=== PATIENT | female | born 1970 | race Caucasian/White ===

== ENCOUNTER 2017-11-14 20:05 | Emergency (ER) | payer BC ==
[2017-11-14 20:48] LABS: Urine Blood TRACE (NEG); Urine Glucose NEGATIVE (NEG); Urine Protein NEGATIVE (NEG)
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
[2017-11-14 22:13] VITALS: TEMP 98.5
[2017-11-14 22:15] VITALS: BP 131/83; O2SAT 100
== END 2017-11-14 22:01 | disposition home or self-care (01) ==
LOC: ER 20:05
DX: S30.1XXA Contusion of abdominal wall, initial encounter (principal); V49.59XA Passenger injured in collision with other motor vehicles in traffic accident, initial encounter
CPT/HCPCS: 70450; 71260; 72125; 74177; 81003; 81025; 99284; Q9967

== ENCOUNTER 2021-12-07 11:35 | Emergency (ER) | payer OTHER ==
--- OUTSIDE RECORDS SUMMARY | 2021-12-07 11:38 | XMS REPORT | Continuity of Care Document ---
:1970 Author Organization [facility] t Address [address] [place] [address] Care Team Providers Name Role Phone JD MARRY Primary Care Physician Unavailable Adele Carrillo Attending Clinician Unavailable Nancy CONTE Attending Clinician Unavailable Joselyn FRANCO Attending Clinician Unavailable Physician, Primary or Family Admitting Clinician Unavailabl e Payers Payer Name Policy Type Policy Number Effective Date Expiration Date [facility] [id number] 2020 CHOICE 00:00:00 BCBS FED SELECT [id number] 2017 00:00:00 Problems This patient has no known problems. Allergies, Adverse Reactions, Alerts Allergy Allergy Status Severity Reaction(s) Onset Inactive Treating Comm ents Source Name Type Date Date Clinician No Known DA Active U [facility] No Known DA Active U 2003- [facility] Contrast 6-15 [facility] 00:[facility]: d 00 [facility] No Known DA Active U 2003-0 [facility] Drug 6[facility]15 [facility] No Known DA Active U 2003-0 [facility] Food 6-15 [facility] Allergie 00:00: d 00 [facility] No Known DA Active U 2003-0 [facility] Other 6-15 [facility] Allergie 00:00: d s 00 [facility] No Known DA Active U 2003-0 [facility] Drug 6-15 [facility] Intolera 00:00: d nces 00 [facility] NO KNOWN Drug Active Univers ALLERGIE Class [facility] Medications This patient has no known medications. Procedures This patient has no known procedures. Encounters Start End Encounter Admission Attending Care Care Encounter Source Date/Time Date/Time Type Type Clinicians Facility Department ID 2021-11-28 2021-11-28 Emergency EM Gerardo, HCAMN HC[facility] [id number] [facility] 12:31:00 15:28:00 Latrice [id number] [facility] 2021-11-28 2021-11-28 Emergency EM Gerardo, [facility]N BRY [id number] [facility] 12:31:00 15:28:00 Latrice 85 [facility] 2020-10-31 2020-10-31 Outpatient Kiara CONTE [facility] [id number] Univers 14:00:00 14:00:00 SENDIL [id number] [facility] 2020-10-31 2020-10-31 [id number] Univers 14:00:00 14:00:00 SENDIL [facility] 2020-09-19 2020-09-19 Outpatient Kiara CONTE [facility] [id number] Univers 13:00:00 13:00:00 SENDIL [id number] [facility] 2020-09-19 2020-09-19 [facility] [id number] Univers 13:00:00 13:00:00 SENDIL [facility] 2019-08-10 2019-08-10 Outpatient Kiara FRANCO [facility] [id number] Univers 14:05:27 23:59:00 ROBERT [facility] Results Test Description Test Time Test Comments Results Result [facility] e Comments - XR ELBOW 3+V RT 2021-11-28 13:10:00 [facility] 1970 Sex: F FAX: Shira Gardiner [employer] [phone] [place]: St: REG Name: KARSON DARDEN [facility] : 1970 Age/S: 51/F [address] [facility] Unit #: [id number] Loc: [place], [place] Phys: Shira Gardiner [employer] [address] Acct: [id number] Dis Date: Status: REG ER PHONE #: [phone] Exam Date: 11/28/2021 1307 FAX #: [phone] Reason: fall EXAMS: CPT CODE: [id number] XR ELBOW 3+V RT [id number] EXAMINATION: - XR HUMERUS 2 + V RT, - XR SHOULDER 2 + V RT, - XR ELBOW 3+V RT, - XR WRIST 3 + V RT HISTORY: Fall and pain COMPARISON: None. LOCATION CODE: C3 FINDINGS: Right shoulder and right humerus: 3 views of the right shoulder and 2 views of the right humerus are submitted for evaluation. There is a nondisplaced fracture of the greater tuberosity of the right humerus. No other fractures are identified. The, clavicular and glenohumeral joints are normal. The adjacent bony and soft tissue structures are unremarkable. Right elbow: 2 views of the right elbow are submitted for evaluation. There is no evidence of fracture, dislocation or destructive osseous lesion. Mild enthesopathy is seen about the medial epicondyles. Articular spaces are maintained. Wrist: 3 views of the right wrist are submitted for evaluation. There is no evidence of fracture, dislocation or destructive osseous lesion. Carpal arcs are maintained and the articular spaces are preserved. The soft tissues are normal. IMPRESSION: Nondisplaced fracture of the greater tuberosity of the right humerus, without other acute abnormality identified in the arm or shoulder at 1310 Reported and signed by: Michelle Nicole M.D CC: Shira Gardiner NP Technologist: WAI FORD Trnscrd Date/Time/By: 11/28/2021 (8832) : By: [email or web address] PAGE 1 Signed Report FAX: Shira Gardiner NP [phone] [place]: St: REG Name: KIRSTINNOEMIKARSON [facility] : 1970 Age/S: 51/F [address] [facility] Unit #: [id number] Loc: [place], [place] Phys: [place] [address] Acct: [id number] Dis Date: Status: REG ER PHONE #: [phone] Exam Date: 11/28/2021 1307 FAX #: [phone] Reason: fall EXAMS: CPT CODE: [id number] XR ELBOW 3+V RT 00863 <Continued> Orig Print D/T: S: 11/28/2021 (2785) PAGE 2 Signed Report - XR SHOULDER 2 + 2021-11-28 V RT 13:10:00 [facility] : 1970 Sex: F FAX: Shira Gardiner NP [phone] [place]: St: REG Name: KARSON DARDEN [facility] : 1970 Age/S: 51/F [address] [facility] Unit #: [id number] Loc: [place], [place] Phys: Shira Gardiner [employer] [address] Acct: [id number] Dis Date: Status: REG ER PHONE #: [phone] Exam Date: 11/28/2021 1307 FAX #: [phone] Reason: fall EXAMS: CPT CODE: [id number] XR SHOULDER 2 + V RT 35584 EXAMINATION: - XR HUMERUS 2 + V RT, - XR SHOULDER 2 + V RT, - XR ELBOW 3+V RT, - XR WRIST 3 + V RT HISTORY: Fall and pain COMPARISON: None. LOCATION CODE: C3 FINDINGS: Right shoulder and right humerus: 3 views of the right shoulder and 2 views of the right humerus are submitted for evaluation. There is a nondisplaced fracture of the greater tuberosity of the right humerus. No other fractures are identified. The, clavicular and glenohumeral joints are normal. The adjacent bony and soft tissue structures are unremarkable. Right elbow: 2 views of the right elbow are submitted for evaluation. There is no evidence of fracture, dislocation or destructive osseous lesion. Mild enthesopathy is seen about the medial epicondyles. Articular spaces are maintained. Wrist: 3 views of the right wrist are submitted for evaluation. There is no evidence of fracture, dislocation or destructive osseous lesion. Carpal arcs are maintained and the articular spaces are preserved. The soft tissues are normal. IMPRESSION: Nondisplaced fracture of the greater tuberosity of the right humerus, without other acute abnormality identified in the arm or shoulder at 1310 Reported and signed by: Michelle Nicole M.D CC: Shira Gardiner NP Technologist: WAI FORD Trnlard Date/Time/By: 11/28/2021 (4774) : By: [email or web address] PAGE 1 Signed Report FAX: Shira Gardiner NP [phone] [place]: St: REG Name: KARSON DARDEN [facility] : 1970 Age/S: 51/F [address] [facility] Unit #: [id number] Loc: [place], [place] Phys: Shira Gardiner [employer] [address] Acct: [id number] Dis Date: Status: REG ER PHONE #: [phone] Exam Date: 11/28/2021 1307 FAX #: [phone] Reason: fall EXAMS: CPT CODE: [id number] XR SHOULDER 2 + V RT 19881 <Continued> Orig Print D/T: S: 11/28/2021 (9736) PAGE 2 Signed Report - XR HUMERUS 2 + V 2021-11-28 RT 13:10:00 [facility] : 1970 Sex: F FAX: Shira Gardiner Hong [employer] [phone] [place]: St: REG Name: KARSON DARDEN [facility] : 1970 Age/S: 51/F [address] [facility] [employer] Unit #: [id number] Loc: [place], [place] Phys: Shira Gardiner [employer] [address] Acct: [id number] Dis Date: Status: REG ER PHONE #: [phone] Exam Date: 11/28/2021 1307 FAX #: [phone] Reason: fall EXAMS: CPT CODE: [id number] XR HUMERUS 2 + V RT [id number] EXAMINATION: - XR HUMERUS 2 + V RT, - XR SHOULDER 2 + V RT, - XR ELBOW 3+V RT, - XR WRIST 3 + V RT HISTORY: Fall and pain COMPARISON: None. LOCATION CODE: C3 FINDINGS: Right shoulder and right humerus: 3 views of the right shoulder and 2 views of the right humerus are submitted for evaluation. There is a nondisplaced fracture of the greater tuberosity of the right humerus. No other fractures are identified. The, clavicular and glenohumeral joints are normal. The adjacent bony and soft tissue structures are unremarkable. Right elbow: 2 views of the right elbow are submitted for evaluation. There is no evidence of fracture, dislocation or destructive osseous lesion. Mild enthesopathy is seen about the medial epicondyles. Articular spaces are maintained. Wrist: 3 views of the right wrist are submitted for evaluation. There is no evidence of fracture, dislocation or destructive osseous lesion. Carpal arcs are maintained and the articular spaces are preserved. The soft tissues are normal. IMPRESSION: Nondisplaced fracture of the greater tuberosity of the right humerus, without other acute abnormality identified in the arm or shoulder at 1310 Reported and signed by: Michelle Nicole M.D CC: Shira Gardiner NP Technologist: WAI Ramirezrd Date/Time/By: 11/28/2021 (8466) : By: [email or web address] PAGE 1 Signed Report FAX: Shira Gardiner [employer] [phone] [place]: St: REG Name: KARSON DARDEN [facility] : 1970 Age/S: 51/F [address] [facility] Unit #: [id number] Loc: [place], [place] Phys: Shira Gardiner [employer] [address] Acct: [id number] Dis Date: Status: REG ER PHONE #: [phone] Exam Date: 11/28/2021 1307 FAX #: [phone] Reason: fall EXAMS: CPT CODE: [id number] XR HUMERUS 2 + V RT 35152 <Continued> Orig Print D/T: S: 11/28/2021 (6839) PAGE 2 Signed Report - XR WRIST 3 + V 2021-11-28 RT 13:10:00 [facility] : 1970 Sex: F FAX: Shira Gardiner [employer] [phone] [place]: St: REG Name: KARSON DARDEN [facility] : 1970 Age/S: 51/F [address] [facility] Unit #: [id number] Loc: [place], [place] Phys: Shira Gardiner [employer] [address] Acct: [id number] Dis Date: Status: REG ER PHONE #: [phone] Exam Date: 11/28/2021 1307 FAX #: [phone] Reason: fall EXAMS: CPT CODE: [id number] XR WRIST 3 + V RT 00001 EXAMINATION: - XR HUMERUS 2 + V RT, - XR SHOULDER 2 + V RT, - XR ELBOW 3+V RT, - XR WRIST 3 + V RT HISTORY: Fall and pain COMPARISON: None. LOCATION CODE: C3 FINDINGS: Right shoulder and right humerus: 3 views of the right shoulder and 2 views of the right humerus are submitted for evaluation. There is a nondisplaced fracture of the greater tuberosity of the right humerus. No other fractures are identified. The, clavicular and glenohumeral joints are normal. The adjacent bony and soft tissue structures are unremarkable. Right elbow: 2 views of the right elbow are submitted for evaluation. There is no evidence of fracture, dislocation or destructive osseous lesion. Mild enthesopathy is seen about the medial epicondyles. Articular spaces are maintained. Wrist: 3 views of the right wrist are submitted for evaluation. There is no evidence of fracture, dislocation or destructive osseous lesion. Carpal arcs are maintained and the articular spaces are preserved. The soft tissues are normal. IMPRESSION: Nondisplaced fracture of the greater tuberosity of the right humerus, without other acute abnormality identified in the arm or shoulder at 1310 Reported and signed by: Michelle Nicole M.D CC: Shira Gardiner NP Technologist: WAI Lilly Date/Time/By: 11/28/2021 (4425) : By: [email or web address] PAGE 1 Signed Report FAX: Shira Gardiner NP [phone] [place]: St: REG Name: KARSON DARDEN [facility] : 1970 Age/S: 51/F [address] [facility] Unit #: [id number] Loc: [place], [place]: [place] [address] Acct: [id number] Dis Date: Status: REG ER PHONE #: [phone] Exam Date: 11/28/2021 1307 FAX #: [phone] Reason: fall EXAMS: CPT CODE: [id number] XR WRIST 3 + V RT 50407 <Continued> Orig Print D/T: S: 11/28/2021 (5004) PAGE 2 Signed Report
[2021-12-07] MEDS ORDERED: MORPHINE 4 MG/ML SYR ONE (12:15)
--- NOTE | 2021-12-07 13:08 | RAD REPORT ---
EXAM DESCRIPTION: RAD - Shoulder Right 2 View - 12/07/2021 12:56 pm CLINICAL HISTORY: Right shoulder pain FINDINGS: Lucencies within the lateral right humeral head having the appearance of minimally displac ed subacute fracture. Osteoporosis. No dislocation is seen
[2021-12-07] MEDS ORDERED: HYDROMORPHONE HCL 0.5 MG/0.5 ML INJ ONE (14:14)
--- NOTE | 2021-12-07 14:20 | ER ---
Nurse's Notes [facility] Name: Yani Carter Age: 51 yrs Sex: Female : 1970 Arrival Date: 12/07/2021 Time: 11:50 Bed DIS3 Private MD: Diagnosis: Humeral Head Fracture Presentation: 12/07 12:06 Chief complaint: Patient states: right shoulder fracture 2 weeks ago, still having pain iw and unable to work. Coronavirus screen: At this time, the client does not indicate any symptoms associated with coronavirus-19. Ebola Screen: Patient negative for fever greater than or equal to 101.5 degrees Fahrenheit, and additional compatible Ebola Virus Disease symptoms Patient denies exposure to infectious person. Patient denies travel to an Ebola-affected area in the 21 days before illness onset. No symptoms or risks identified at this time. Initial Sepsis Screen: Does the patient meet any 2 criteria? No. Patient's initial sepsis screen is negative. Does the patient have a suspected source of infection? No. Patient's initial sepsis screen is negative. Risk Assessment: Do you want to hurt yourself or someone else? Patient reports no desire to harm self or others. 12:06 Method Of Arrival: Ambulatory iw 12:06 Acuity: SONALI 4 iw Historical: - Allergies: 12:07 No Known Allergies; iw - PMHx: 12:07 FACTOR 5; Hypothyroidism; Migraines; iw - Social history:: Smoking status: unknown. Screenin:41 Abuse screen: Denies threats or abuse. Denies injuries from another. Nutritional ss screening: No deficits noted. Tuberculosis screening: Never had TB. Fall Risk None identified. Assessment: 13:41 Reassessment: Pt states, "That morphine didn't help at all. My pain is still a 10/10. ss Dilaudid usually helps more.". Pain: Complains of pain in R shoulder. Neuro: Contreras Agitation-Sedation Scale (RASS): 0 - Alert and Calm Level of Consciousness is awake, alert, obeys commands, Oriented to person, place, time, situation. Respiratory: Airway is patent Respiratory effort is even, unlabored. 14:13 Reassessment: Patient appears in no apparent distress at this time. Neuro: Contreras ss Agitation-Sedation Scale (RASS): 0 - Alert and Calm. Vital Signs: 12:06 BP 125 / 100; Pulse 105; Resp 16; Temp 98.2; Pulse Ox 100% on R/A; iw ED Course: 11:50 Patient arrived in ED. mr 11:54 Suresh Lo PA is PHCP. jmm 11:54 Obed Stallings DO is Attending Physician. m 12:07 Triage completed. iw 12:07 Arm band placed on. iw 12:55 Shoulder Right (2 View) XRAY In Process Unspecified. EDMS 13:36 Stefany Green, CATHERINE is Primary Nurse. ss 13:41 Patient has correct armband on for positive identification. Bed in low position. Call ss light in reach. 13:41 No provider procedures requiring assistance completed. Patient did not have IV access ss during this emergency room visit. Shoulder immobilizer applied on right shoulder. 14:19 Jose Burgos MD is Referral Physician. [facility] Administered Medications: 12:12 Drug: morphine 4 mg Route: IM; Site: left deltoid; iw 13:43 Follow up: Response: No adverse reaction; Pain is unchanged, physician notified ss 14:13 Drug: Dilaudid (HYDROmorphone) 0.5 mg Route: IM; Site: left deltoid; ss 14:40 Follow up: Response: No adverse reaction; Pain is decreased; RASS: Alert and Calm (0) ss Medication: 13:41 VIS not applicable for this client. ss Outcome: 14:19 Discharge ordered by . m 14:36 Discharged to home ambulatory. ss 14:36 Condition: good 14:36 Discharge instructions given to patient, Instructed on discharge instructions, follow up and referral plans. medication usage, Demonstrated understanding of instructions, follow-up care, medications, Prescriptions given X 1. 14:40 Patient left the ED. ss Signatures: Dispatcher [employer] EDMS Suresh Lo PA PA jmLili Murcia Angelina Gonzales RN RN Stefany Green RN RN ss
--- NOTE | 2021-12-07 14:20 | EDPHYS ---
Physician Documentation [facility] Name: Yani aCrter Age: 51 yrs Sex: Female : 1970 Arrival Date: 12/07/2021 Time: 11:50 Bed DIS3 Private MD: ED Physician Obed Stallings HPI: 12/07 11:57 This 51 yrs old Female presents to ER via Ambulatory with complaints of Arm Injury, jmm Shoulder Injury. 11:57 The patient or guardian complains of injury, pain. Onset: The symptoms/episode jmm began/occurred acutely, 2 week(s) ago. This is a 51-year-old female with history of factor V Leiden, hypothyroidism presents emerged part with complaints of right shoulder pain which has been ongoing since fracture to the humerus 2 weeks ago. Patient states the pain continues. Patient is not been wearing her sling. Patient has not followed up with her orthopedic doctor. Historical: - Allergies: 12:07 No Known Allergies; iw - PMHx: 12:07 FACTOR 5; Hypothyroidism; Migraines; iw - Social history:: Smoking status: unknown. ROS: 11:57 Constitutional: Negative for fever, chills, and weight loss, Cardiovascular: Negative jmm for chest pain, palpitations, and edema, Respiratory: Negative for shortness of breath, cough, wheezing, and pleuritic chest pain. 11:57 MS/extremity: Positive for pain. 11:57 All other systems are negative. Exam: 11:57 Constitutional: This is a well developed, well nourished patient who is awake, alert, jmm and in no acute distress. Head/Face: atraumatic. Eyes: EOMI, no conjunctival erythema appreciated ENT: Moist Mucus Membranes Neck: Trachea midline, Supple Chest/axilla: Normal chest wall appearance and motion. Cardiovascular: Regular rate and rhythm. 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 11:57 Skin: Appearance: Color: normal in color. 11:57 Neuro: Orientation: is normal, Mentation: is normal, Memory: is normal. 11:57 Psych: Behavior/mood is pleasant, cooperative. Vital Signs: 12:06 BP 125 / 100; Pulse 105; Resp 16; Temp 98.2; Pulse Ox 100% on R/A; iw MDM: 11:57 Patient medically screened. [facility] 14:18 Data reviewed: vital signs, nurses notes. Counseling: I had a detailed discussion with [facility] the patient and/or guardian regarding: the historical points, exam findings, and any diagnostic results supporting the discharge/admit diagnosis, radiology results, the need for outpatient follow up, to return to the emergency department if symptoms worsen or persist or if there are any questions or concerns that arise at home. 12/07 11:58 Order name: Shoulder Right (2 View) XRAY; Complete Time: 13:11 [facility] 12/07 13:23 Order name: Shoulder Immobilizer; Complete Time: 13:43 [facility] Administered Medications: 12:12 Drug: morphine 4 mg Route: IM; Site: left deltoid; iw 13:43 Follow up: Response: No adverse reaction; Pain is unchanged, physician notified ss 14:13 Drug: Dilaudid (HYDROmorphone) 0.5 mg Route: IM; Site: left deltoid; ss 14:40 Follow up: Response: No adverse reaction; Pain is decreased; RASS: Alert and Calm (0) ss Disposition: 22:11 Co-signature as Attending Physician, Obed Stallings DO I was immediately available on-site ms3 in the Emergency Department for consultation in the care of the patient.. Disposition Summary: 12/07/21 14:19 Discharge Ordered Location: Home [facility] Condition: Stable [facility] Diagnosis - Humeral Head Fracture [facility] Followup: [facility] - With: Jose Burgos MD - When: 2 - 3 days - Reason: Recheck today's complaints, Continuance of care, Re-evaluation by your physician Discharge Instructions: - Discharge Summary Sheet [facility] - Humerus Fracture Treated With Immobilization [facility] - Humerus Fracture Rehab-SportsMed [facility] Forms: - Medication Reconciliation Form [facility] - Work release form [facility] - Thank You Letter [facility] - Antibiotic Education [facility] - Prescription Opioid Use [facility] Prescriptions: - orphenadrine citrate 100 mg Oral Tablet Sustained Release - take 1 tablet by ORAL route 2 times per day As needed; 20 tablet; Refills: 0, jmm Product Selection Permitted Signatures: Dispatcher [employer] Suresh Cervantes PA PA jmm Williams, Irene, CATHERINE RN Stefany Huffman RN RN ss Obed Stallings DO DO ms3 Corrections: (The following items were deleted from the chart) 13:21 13:16 Sling ordered. tavo vo
[2021-12-07 15:15] VITALS: BP 125/100; TEMP 98.2; O2SAT 100
== END 2021-12-07 14:40 | disposition home or self-care (01) ==
LOC: ER 11:35
DX: S42.301S Unspecified fracture of shaft of humerus, right arm, sequela (principal)
CPT/HCPCS: 73030; 96372; 99284; J1170

== ENCOUNTER 2023-05-24 10:30 | Emergency (ER) | payer OTHER, SELFPAY ==
--- OUTSIDE RECORDS SUMMARY | 2023-05-24 10:34 | XMS REPORT | Continuity of Care Document ---
:1970 Author Organization [facility] t Address [address] [place] [address]. [address] [place] [address] Care Team Providers Name Role Phone KATELYN MILES Primary Care Physician Unavailable KATELYN MILES Attending Clinician Unavailable MEL HERNANDEZ Attending Clinician Unavailable DIANE JAKCSON Attending Clinician Unavailable GINNA MOTLEY Attending Clinician Unavailable DURAL JARED Attending Clinician Unavailable ELIJAH CERDA Attending Clinician Unavailable LO ESCOBAR Attending Clinician Unavailable SYSTEM, PROVIDER NOT IN Attending Clinician Unavailable MD SARAH Attending Clinician Unavailable HANY BATSE Attending Clinician Unavailable Latrice Carrillo Attending Clinician Unavailable SUSANNA CONTE Attending Clinician Unavailable ROBERT FRANCO Attending Clinician Unavailable Physician, No Primary or Family Admitting Clinician Unavaila ble Payers Payer Name Policy Type Policy Number Effective Date Expiration Date S emamnuel AETNA [facility] 9 [id number] 2023 SILVER $30 4000 00:00:[address] [id number] 2020 CHOICE 00:00:00 [facility] FED [employer] [id number] 2017 00:00:00 Problems This patient has no known problems. Allergies, Adverse Reactions, Alerts Allergy Allergy Status Severity Reaction(s) Onset Inactive Treating Comm ents Source Name Type Date Date Clinician Morphine Propensi Active Other Doesn't Kel y ty to 03-11 work Seybold adverse 00:00: - reaction 00 Externa s l Acetamin Propensi Active Rash Yolanda ophen-Co ty to 03-11 Seybold deine adverse 00:00: - reaction 00 Externa s l No Known DA Active U [facility]03 [facility] s 00:00: d 00 [facility] No Known DA Active U 2004-0 [facility] Other 6-15 [facility] Allergie 00:00: d s 00 [facility] No Known DA Active U 2004-0 [facility] Drug 6-15 [facility] Intolera 00:00: d nces 00 [facility] No Known DA Active U 2004-0 [facility] Contrast 6-15 [facility] Allergie 00:00: d s 00 [facility] No Known DA Active U 2004-0 [facility] Drug 6-15 [facility] Allergie 00:00: d s 00 [facility] No Known DA Active U 2004-0 [facility] Food 6-15 [place] Allergie 00:00: d s 00 [facility] [id number] Drug Active rash Common allergy [facility] NO KNOWN Drug Active Univers ALLERGIE Class ity of S [facility] Social History Social Habit Start Date Stop Date Quantity Comments Source Gender identity Yolanda crespo - External Sexual orientation Yolanda Perez - External History of tobacco Cigarette Smoker Yolanda Preez use - External Alcohol intake 2023-03-11 2023-03-11 Current drinker Bozena Perez 00:00:00 00:00:00 of alcohol - External (finding) Cigarette 2023-03-08 2023-03-08 Yolanda Perez pack-years 00:00:00 00:00:00 - External Tobacco use and 2023-03-08 2023-03-08 Smokeless tobacco Ke aaron Perez exposure 00:00:00 00:00:00 non-user - External History of Social 2023-03-08 2023-03-08 Yolanda Perez function 00:00:00 00:00:00 - External Alcohol Comment 2023-03-08 2023-03-08 socially Yolanda crespo 00:00:00 00:00:00 - External Cigarettes smoked 2023-03-08 2023-03-08 Yolanda Perez current (pack per 00:00:00 00:00:00 - Exter nal day) - Reported Sex Ass[birth year] At [birth year] Yolanda crespo 00:00:00 00:00:00 - External Smoking Status Start Date Stop Date Source Ex-smoker 2023-03-08 00:00:00 2023-03-08 00:00:00 Yolanda barker - External Medications Ordered Filled Start Stop Current Ordering Indication Dosage Frequency Signature Comments Components Source Medication Medication Date Date Medication? Clinician (SIG) Name Name Alprazolam Yes .5mg [id number] Take 1 Yolanda 0.5 MG oral 8-14 [id number] tablet Seybold Tablet 13:47: 3D (0.5 mg - 02 total) by Externa mouth 3 l times daily as needed Furosemide Yes 20mg Take 1 Kelse y (Lasix) 20 8-14 tablet (20 Sey bold MG oral 13:47: mg total) - Tablet 02 by mouth Externa daily l Bupropion Yes 150mg Take 1 Kelse y HCL XL 150 8-14 tablet Seybold MG OR TB24 13:47: (150 mg - 02 total) by Externa mouth l daily Clonidine Yes Yolanda (CATAPRES) 5-30 Seybold 0.2 MG oral 00:00: - Tablet 00 Externa l Tramadol Yes TAKE ONE Kelse y HCl 5-15 (1) OR TWO Seybold (ULTRAM) 50 00:00: (2) - MG oral 00 TABLET(S) Externa Tablet BY MOUTH l THREE TIMES A DAY. Carisoprodo 2022-0 Yes Yolanda l 350 MG 5-11 Seybold oral Tablet 00:00: - 00 Externa l Clonazepam 2022-0 Yes Yolanda 2 MG oral 5-11 Seybold Tablet 00:00: - 00 Externa l Gabapentin 2022-0 Yes Yolanda 300 MG oral 5-11 Seybold Capsule 00:00: - 00 Externa l Omeprazole 2022-0 Yes Yolanda 40 MG oral 5-11 Seybold Delayed 00:00: - Release 00 Externa Capsule l Bupropion 2022-0 2022- No Yolanda HCL XL 300 12-06-14 Seybold MG OR TB24 00:00: 00:00 - 00 :00 Externa l Levothyroxi 2022-0 Yes Yolanda ne Sodium 11-26 Seybold 300 MCG 00:00: - oral Tablet 00 Externa l Quetiapine 0 2022- No Yolanda Fumarate 5-08 05- Seybold 300 MG oral 00:00: 00:00 - Tablet 00 :00 Externa l Xarelto 20 2022-0 Yes 20mg Take 1 Kelse y MG oral 4-24 tablet (20 Seybol d Tablet 00:00: mg total) - 00 by mouth Externa daily WITH l FOOD atorvastati atorvastati No atorvastat n 20mg n 20mg 7-15 in 20mg 00:00: 00 clonazePAM clonazePAM 2020-0 No 1{table QD clonazePAM 2 MG 2 MG 7-15 t} 2 MG 00:00: 00 Topamax 50 Topamax 50 2020-0 No 1{table QD Topamax 50 MG MG 7-15 t} MG 00:00: 00 Xarelto Xarelto No Xarelto traMADol traMADol No traMADol HCl 50 MG HCl 50 MG HCl 50 MG Levothyroxi Levothyroxi No Levothyrox ne Sodium ne Sodium ine Sodium Xarelto 20 Xarelto 20 No Xarelto 20 MG MG MG Vital Signs Vital Name Observation Time Observation Value Comments Source Systolic blood 2023-03-11 18:40:00 138 mm[Hg] Yolanda Seybold - pressure External Diastolic blood 2023-03-11 18:40:00 88 mm[Hg] Kelse y Seybold - pressure External Heart rate 2023-03-11 18:40:00 99 /min Yolanda S eybold - External Body temperature 2023-03-11 18:40:00 36.61 Erica Zaira ey Seybold - External Respiratory rate 2023-03-11 18:40:00 20 /min Zaira kearney Seybold - External Body height 2023-03-11 18:40:00 165.1 cm Yolanda Angulo eybold - External Body weight 2023-03-11 18:40:00 109.317 kg Yolanda Angulo eybold - External BMI 2023-03-11 18:40:00 40.10 kg/m2 Yolanda Angulo eybomadhu - External Oxygen saturation in 2023-03-11 18:40:00 100 /min oYlanda Perez - Arterial blood by External Pulse oximetry height 2022-02-07 10:00:00 65 [in_i] [facility] weight 2022-02-07 10:00:00 215 [lb_av] [facility] bmi 2022-02-07 10:00:00 35.77 kg/m2 [facility] blood pressure 2022-02-07 10:00:00 124 mm[Hg] Common [facility] - systolic [facility] blood pressure 2022-02-07 10:00:00 72 mm[Hg] Common [facility] - diastolic [facility] Procedures This patient has no known procedures. Encounters Start End Encounter Admission Attending Care Care Encounter Source Date/Time Date/Time Type Type Clinicians Facility Department ID 2022-02-07 Outpatient JDKATELYN [facility] [id number] Common 11:24:[id number] [facility] 2023-07-04 2023-07-04 Outpatient YOLANDA HERNANDEZ [id number] Yolanda 16:30:00 16:30:00 MEL Seybol d 2023-06-17 2023-06-17 Outpatient YOLANDA JACKSON [id number] Yolanda 13:30:00 13:30:00 DIANEWALDO Gregory ld 2023-06-04 2023-06-04 Outpatient YOLANDA MOTLEY [id number] Yolanda 13:00:00 13:00:00 GINNA Seybol d 2023-05-23 2023-05-23 Outpatient JARED ROBERTS [id number] Yolanda 12:45:00 12:45:00 Seybol d 2023-05-13 2023-05-13 Outpatient YOLANDA CERDA [id number] Yolanda 00:00:00 00:00:00 ELIJAH Seybol d 2023-04-22 2023-04-22 Outpatient YOLANDA CERDA [id number] Yolanda 00:00:00 00:00:00 ELIJAH Seybol mirlande 2023-04-05 2023-04-05 Outpatient YOLANDA ESCOBAR [id number] Yolanda 15:00:00 15:00:00 LO Goldsmithybol mirlande 2023-04-05 2023-04-05 Outpatient YOLANDA CONNORS [id number] Yolanda 00:00:00 00:00:00 PROVIDER Bri leung 2023-03-27 2023-03-27 Outpatient LIZZETTE MOYER [id number] Yolanda 00:00:00 00:00:00 MD Carole HUFF 2023-03-27 2023-03-27 Outpatient LIZZETTE MOYER [id number] Yolanda 00:00:00 00:00:00 MD Carole HUFF 2023-03-11 2023-03-11 Outpatient YOLANDA CERDA [id number] Yolanda 13:30:00 13:30:00 ELIJAH Seybol mirlande 2023-02-18 2023-02-18 Outpatient YOLANDA CERDA [id number] Yolanda 08:45:00 08:45:00 ELIJAH Goldsmithybol mirlande 2023-01-03 2023-01-03 Outpatient YOLANDA BATES [id number] Yolanda 14:00:00 14:00:00 HANY Goldsmithybol mirlande 2022-02-07 2022-02-07 OFFICE STLMLC STLMLC [id number] mmon 00:00:00 00:00:00 VISIT [facility] ESTAB PT - CHI LEVEL 4 [facility] 2021-11-28 2021-11-28 Emergency EM Gerardo, HCAMN HCAMN [id number] [facility] 12:31:00 15:28:00 Latrice [id number] [facility] 2021-11-28 2021-11-28 Emergency EM Gerardo, HCAMN BRY [id number] [facility] 12:31:00 15:28:00 Latrice Kauffman [facility] li [facility] 2020-10-31 2020-10-31 Outpatient Kiara DG [facility] [id number] Univers 14:00:00 14:00:00 SENDIL [facility] 2020-09-19 2020-09-19 Outpatient Kiara DG [facility] [id number] Univers 13:00:00 13:00:00 SENDIL [facility] 2019-08-10 2019-08-10 Outpatient Kiara FRANCO, [facility] [id number] Univers 14:05:27 23:59:00 [facility] Results Test Description Test Time Test Comments Results Result [facility] e Comments - XR ELBOW 3+V RT 2021-11-28 13:10:00 [facility] 1970 Sex: F FAX: Shira Gardiner [employer]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 [phone] [place]: St: REG Name: KARSON DARDEN [facility] : 1970 Age/S: 51/F [address] Unit #: [id number] Loc: [place], [place] Phys: [place] [id number] Acct: [id number] Dis Date: Status: REG ER PHONE #: [phone] Exam Date: 11/28/2021 1307 FAX #: [phone] Reason: fall EXAMS: CPT CODE: [id number] XR ELBOW 3+V RT [id number] EXAMINATION: - XR HUMERUS 2 + V [...] NP Technologist: WAI FORD Trnscrd Date/Time/By: 11/28/2021 (1310) : By: [email or web address] PAGE 1 Signed Report FAX: Shira Gardiner NP [phone] [place]: St: REG Name: KARSNO DARDEN [facility] : 1970 Age/S: 51/F [address] Unit #: [id number] Loc: [place], [place] Phys: Shira Gardiner [employer]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 [address] Acct: [id number] Dis Date: Status: REG ER PHONE #: [phone] Exam Date: 11/28/2021 1307 FAX #: [phone] Reason: fall EXAMS: CPT CODE: [id number] XR ELBOW 3+V RT [id number] (Continued) Orig Print D/T: S: 11/28/2021 (1314) PAGE 2 Signed Report - XR SHOULDER 2 + 2021-11-28 V RT 13:10:00 [facility] : 1970 Sex: F FAX: Shira Gardiner NP [phone] [place]: St: REG Name: KARSON DARDEN [facility] : 1970 Age/S: 51/F [address] Unit #: [id number] [place] Phys: Shira Gardiner [employer]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 [address] Acct: [id number] Dis Date: Status: REG ER PHONE #: [phone] Exam Date: 11/28/2021 1307 FAX #: [phone] Reason: fall EXAMS: CPT CODE: [id number] XR SHOULDER 2 + V RT [id number] EXAMINATION: - XR HUMERUS 2 + V [...] CC: Shira Gardiner NP Technologist: WAI FORD Trnmard Date/Time/By: 11/28/2021 (1310) : By: [email or web address] PAGE 1 Signed Report FAX: Shira Gardiner NP [phone] [place]: St: REG Name: KARSON DARDEN [facility] : 1970 Age/S: 51/F [address] Unit #: [id number] Loc: [place], [place] Phys: Shira Gardiner [employer]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 [address] Acct: [id number] Dis Date: Status: REG ER PHONE #: [phone] Exam Date: 11/28/2021 1307 FAX #: [phone] Reason: fall EXAMS: CPT CODE: [id number] XR SHOULDER 2 + V RT [id number] (Continued) Orig Print D/T: S: 11/28/2021 (1314) PAGE 2 Signed Report - XR HUMERUS 2 + V 2021-11-28 RT 13:10:00 [facility] : 1970 Sex: F FAX: Shira Gardiner [employer]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 [phone] [place]: St: REG Name: KARSON DARDEN [facility] : 1970 Age/S: 51/F [address] Unit #: [id number] Loc: [place], [place] Phys: Shira Gardiner [employer]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 [address] Acct: [id number] Dis Date: Status: REG ER PHONE #: [phone] Exam Date: 11/28/2021 [facility] FAX #: [phone] Reason: fall EXAMS: CPT CODE: [id number] XR HUMERUS 2 + V RT [id number] EXAMINATION: - XR HUMERUS 2 + V [...] NP Technologist: WAI FORD Trnscrd Date/Time/By: 11/28/2021 (1310) : By: [email or web address] PAGE 1 Signed Report FAX: Shira Gardiner NP [phone] [place]: St: REG Name: KARSON DARDEN [facility] : 1970 Age/S: 51/F [address] [facility] Unit #: [id number] [place]: [place]: [place] [id number] Acct: [id number] Dis Date: Status: REG ER PHONE #: [phone] Exam Date: 11/28/2021 1307 FAX #: [phone] Reason: fall EXAMS: CPT CODE: [id number] XR HUMERUS 2 + V RT [id number] (Continued) Orig Print D/T: S: 11/28/2021 (1314) PAGE 2 Signed Report - XR WRIST 3 + V 2021-11-28 RT 13:10:00 [facility] : 1970 Sex: F FAX: Shira Gardiner [employer]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 [phone] [place]: St: REG Name: TOMIKARSON CORTEZ YESSICA [facility] : 1970 Age/S: 51/F [address] [facility] Unit #: [id number] Loc: [place], [place] Phys: Shira Gardiner [employer]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 [address] Acct: [id number] Dis Date: Status: REG ER PHONE #: [phone] Exam Date: 11/28/2021 1307 FAX #: [phone] Reason: fall EXAMS: CPT CODE: [id number] XR WRIST 3 + V RT [id number] EXAMINATION: - XR HUMERUS 2 + V [...] Gardiner NP Technologist: WAI Lilly Date/Time/By: 11/28/2021 (1310) : By: [email or web address] PAGE 1 Signed Report FAX: Shira Gardiner NP [phone] [place]: St: REG Name: KARSON DARDEN [facility] : 1970 Age/S: 51/F [address] [facility] Unit #: [id number] Loc: [place], [place]: [place] [address] Acct: [id number] Dis Date: Status: REG ER PHONE #: [phone] Exam Date: 11/28/2021 1307 FAX #: [phone] Reason: fall EXAMS: CPT CODE: [id number] XR WRIST 3 + V RT [id number] (Continued) Orig Print D/T: S: 11/28/2021 (1948) PAGE 2 Signed Report
[2023-05-24 11:25] LABS: Absolute Lymphocytes (CBC) 3.2 K/uL (0.7-4.9); Hematocrit 39.8 % (36.0-45.0); Lymphocytes % 32.6 % (15.3-44.8); MCV 92.3 fL (80-100); MPV 7.9 fL (7.6-11.3); Platelets 260 thou/uL (152-406); RBC Red Blood Cell Count 4.31 M/uL (3.86-4.86)
[2023-05-24 11:28] LABS: Protime INR 1.08
[2023-05-24] MEDS ORDERED: PANTOPRAZOLE 40 MG INJ ONE (11:35)
[2023-05-24] MEDS ORDERED: NA CHLORIDE 0.9% 1,000 ML ONE (11:35)
[2023-05-24 11:49] LABS: ALT/SGPT 56 U/L (13-56); AST/SGOT 32 U/L (15-37); Albumin 3.3 g/dL (3.4-5.0); Alkaline Phosphatase 115 U/L (45-117); BUN Blood Urea Nitrogen 13 mg/dL (7-18); Bicarbonate 28 mEq/L (21-32); Bilirubin Total 0.3 mg/dL (0.2-1.0); Glomerular Filtration Rate 88 ml/min (=/>90); Glucose Level 114 mg/dL (74-106); Lipase 60 U/L (13-75); NT PRO-BNP 118 pg/mL (<125); Potassium 3.3 mEq/L (3.5-5.1); Protein, Total 7.4 g/dL (6.4-8.2); Sodium Level 137 mEq/L (136-145)
[2023-05-24 11:50] LABS: Bilirubin Direct < 0.1 mg/dL (0-0.2); Bilirubin Indirect, Calculated ND mg/dL (0.2-0.8)
--- NOTE | 2023-05-24 12:08 | RAD REPORT ---
EXAM DESCRIPTION: RAD - Chest Single View - 05/24/2023 11:45 am CLINICAL HISTORY: COUGH Chest pain. COMPARISON: CHEST PA AND LAT 2 VIEW dated 05/31/2013 FINDINGS: Portable technique limits examination quality. The lungs are grossly clear. The heart is normal in size. No displaced fractures. IMPRESSION: No acute intrathoracic process suspected.
[2023-05-24] MEDS ORDERED: HYDROMORPHONE HCL 1 MG/ML INJ ONE (12:11)
--- NOTE | 2023-05-24 12:21 | RAD REPORT ---
EXAM DESCRIPTION: CT - Head Brain Wo Cont - 05/24/2023 12:07 pm CLINICAL HISTORY: HEADACHE Headache, drowsiness COMPARISON: Head Brain Wo Cont dated 07/26/2017; Abdomen Pelvis W Contrast dated 05/24/2023 TECHNIQUE: All CT scans are performed using dose optimization technique as appropriate and may inclu de automated exposure control or mA/KV adjustment according to patient size. FINDINGS: No intracranial hemorrhage, hydrocephalus or extra-axial fluid collection.No areas of brai n edema or evidence of midline shift. Mild nonspecific hyperdensity of the superior sagittal sinus. The paranasal sinuses and mastoids are clear. The calvarium is intact. IMPRESSION: No acute intracranial abnormality. Superior sagittal sinus has a mildly hyperdense appearance. This is nonspecific but can be seen in th rombus as described in the patient's clinical history.
--- NOTE | 2023-05-24 12:25 | RAD REPORT ---
EXAM DESCRIPTION: CTAbdomen Pelvis W Contrast - 05/24/2023 12:11 pm CLINICAL HISTORY: Abdominal pain. ABD PAIN COMPARISON: Chest Single View dated 05/24/2023 TECHNIQUE: Biphasic CT imaging of the abdomen and pelvis was performed with 100 ml non-ionic IV cont rast. All CT scans are performed using dose optimization technique as appropriate and may include automated exposure control or mA/KV adjustment according to patient size. FINDINGS: The lung bases are clear.Deflated right breast implant suspected. Postsurgical changes are present about the stomach. The liver demonstrates diffuse fatty infiltration. Spleen, pancreas, adrenal glands and kidneys are w ithin normal limits. No bowel obstruction, free air, free fluid or abscess. The appendix is normal. No evidence of signi ficant lymphadenopathy. No suspicious bony findings. IMPRESSION: No acute intra-abdominal or pelvic finding. Mild diffuse fatty liver.
--- NOTE | 2023-05-24 12:41 | EDPHYS ---
Physician Documentation [facility] Name: Yani Carter Age: 52 yrs Sex: Female : 1970 Arrival Date: 05/24/2023 Time: :30 Bed 20 Private MD: ED Physician Arthur Holland HPI: 05/24 11:46 This 52 yrs old Female presents to ER via Ambulatory with complaints of lizzeth Rectal Bleeding, GI Bleeding, Nose Bleed, Vomiting - blood. 11:46 The patient presents to the emergency department with bleeding from the rectum/anus, lizzeth that is mild. Onset: The symptoms/episode began/occurred 1 day(s) ago. Context: the patient has no known special context relating to the rectal area complaint(s). Modifying factors: The symptoms are alleviated by remaining still, The symptoms are aggravated by nothing. Associate signs and symptoms: The patient has no apparent associated signs or symptoms. The patient has experienced similar episodes in the past, several times. 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 - Social history:: Smoking status: Patient denies any tobacco usage or history of. ROS: 11:49 Constitutional: Negative for fever, chills, and weight loss, Eyes: Negative for injury, lizzeth pain, redness, and discharge, ENT: Negative for injury, pain, and discharge, Neck: Negative for injury, pain, and swelling, Cardiovascular: Negative for chest pain, palpitations, and edema, Respiratory: Negative for shortness of breath, cough, wheezing, and pleuritic chest pain, Back: Negative for injury and pain, : Negative for injury, bleeding, discharge, and swelling, MS/Extremity: Negative for injury and deformity, Skin: Negative for injury, rash, and discoloration, Psych: Negative for depression, anxiety, suicide ideation, homicidal ideation, and hallucinations, Allergy/Immunology: Negative for hives, rash, and allergies, Endocrine: Negative for neck swelling, polydipsia, polyuria, polyphagia, and marked weight changes, 11:49 Abdomen/GI: Positive for abdominal pain, nausea and vomiting, vomiting, abdominal cramps, hematemesis, rectal bleeding, Exam: 11:49 Constitutional: This is a well developed, well nourished patient who is awake, alert, lizzeth and in no acute distress. Head/Face: Normocephalic, atraumatic. Eyes: Pupils equal round and reactive to light, extra-ocular motions intact. Lids and lashes normal. Conjunctiva and sclera are non-icteric and not injected. Cornea within normal limits. Periorbital areas with no swelling, redness, or edema. ENT: Nares patent. No nasal discharge, no septal abnormalities noted. Tympanic membranes are normal and external auditory canals are clear. Oropharynx with no redness, swelling, or masses, exudates, or evidence of obstruction, uvula midline. Mucous membranes moist. Neck: Trachea midline, no thyromegaly or masses palpated, and no cervical lymphadenopathy. Supple, full range of motion without nuchal rigidity, or vertebral point tenderness. No Meningismus. Chest/axilla: Normal chest wall appearance and motion. Nontender with no deformity. No lesions are appreciated. Respiratory: Lungs have equal breath sounds bilaterally, clear to auscultation and percussion. No rales, rhonchi or wheezes noted. No increased work of breathing, no retractions or nasal flaring. Abdomen/GI: Soft, non-tender, with normal bowel sounds. No distension or tympany. No guarding or rebound. No evidence of tenderness throughout. Back: No spinal tenderness. No costovertebral tenderness. Full range of motion. Skin: Warm, dry with normal turgor. Normal color with no rashes, no lesions, and no evidence of cellulitis. MS/ Extremity: Pulses equal, no cyanosis. Neurovascular intact. Full, normal range of motion. Neuro: Awake and alert, GCS 15, oriented to person, place, time, and situation. Cranial nerves II-XII grossly intact. Motor strength 5/5 in all extremities. Sensory grossly intact. Cerebellar exam normal. Normal gait. Psych: Awake, alert, with orientation to person, place and time. Behavior, mood, and affect are within normal limits. 11:49 Cardiovascular: Rate: tachycardic, actual rate is 113 bpm, Rhythm: regular, Pulses: no pulse deficits are appreciated, Heart sounds: normal, JVD: is not appreciated, 11:49 ECG was reviewed by the Attending Physician. 12:45 Abdomen/GI: Bowel sounds: normal, in all quadrants, Palpation: abdomen is soft and lizzeth non-tender, Rectal exam: is unremarkable, rectal tone normal, Stool: guaiac negative, hemorrhoid(s), are not appreciated, mass, is not appreciated, swelling, is not appreciated, tenderness, is not appreciated, fecal impaction, is not appreciated, the exam is chaperoned by a family member, Liver: no appreciated palpable abnormalities, Hernia: not appreciated, Vital Signs: 10:44 BP 134 / 79; Pulse 113; Resp 16; Temp 97.7; Pulse Ox 98% on R/A; hb 11:45 BP 124 / 93; Pulse 74; Resp 16; Pulse Ox 96% ; Pain 10/10; nj1 12:30 Pain 8/10; nj1 13:20 BP 122 / 82; Pulse 73; Resp 17; Pulse Ox 96% ; nj1 11:45 Pain Scale: Adult nj1 12:30 Pain Scale: Adult nj1 Reyna Coma Score: 11:52 Eye Response: spontaneous(4). Motor Response: obeys commands(6). Verbal Response: lizzeth oriented(5). Total: 15. MDM: 10:55 Patient medically screened. lizzeth 11:52 Differential diagnosis: hemorrhoids, fissure. Data reviewed: vital signs, nurses notes, [facility] lab test result(s), EKG, radiologic studies, CT scan, plain films. Consideration of Admission/Observation Escalation of care including admission/observation considered. I considered the following discharge prescriptions or medication management in the emergency department Medications were administered in the Emergency Department. See MAR. Independent interpretation of the following test(s) in the Emergency Department EKG: See my EKG interpretation above. Test considered but Not performed: Other Details no bleeding scan. 05/24 10:37 Order name: Basic Metabolic Panel; Complete Time: 12:33 [facility] 05/24 10:37 Order name: CBC with Diff; Complete Time: 11:46 [facility] 05/24 10:37 Order name: LFT's; Complete Time: 12:33 [facility] 05/24 10:37 Order name: Magnesium; Complete Time: 12:33 [facility] 05/24 10:37 Order name: NT PRO-BNP; Complete Time: 12:33 [facility] 05/24 10:37 Order name: PT-INR; Complete Time: 11:46 [facility] 05/24 10:37 Order name: Troponin HS; Complete Time: 12:33 [facility] 05/24 10:37 Order name: Lipase; Complete Time: 12:33 [facility] 05/24 10:56 Order name: Type And Screen; Complete Time: 12:33 [facility] 05/24 10:37 Order name: XRAY Chest (1 view); Complete Time: 12:33 [facility] 05/24 10:37 Order name: CT Abd/Pelvis - IV Contrast Only; Complete Time: 12:33 [facility] 05/24 11:45 Order name: CT Head Brain wo Cont; Complete Time: 12:33 [facility] 05/24 10:37 Order name: EKG; Complete Time: 10:37 [facility] 05/24 10:37 Order name: Cardiac monitoring; Complete Time: 11:29 [facility] 05/24 10:37 Order name: EKG - Nurse/Tech; Complete Time: 11: [facility] 05/24 10:37 Order name: IV Saline Lock; Complete Time: 10:57 [facility] 05/24 10:37 Order name: Labs collected and sent; Complete Time: 10:57 [facility] 05/24 10:37 Order name: O2 Per Protocol; Complete Time: 11:11 [facility] 05/24 10:37 Order name: O2 Sat Monitoring; Complete Time: 11:11 [facility] EC:49 Rate is 77 beats/min. Rhythm is regular. QRS Ewing is Normal. ID interval is normal. QRS lizzeth interval is normal. QT interval is normal. T waves are Normal. No ST changes noted. Clinical impression: Sinus tachycardia and No evidence of ischemia. Interpreted by me. Reviewed by me. Administered Medications: 11:25 Drug: NS 0.9% IV 1000 ml IV at 125 ml/hr continuous Route: IV; Rate: 125 ml/hr; Site: [facility] left antecubital; 11:59 Follow up: IV Intake: 60ml nj 11:25 Drug: Pantoprazole IVP 40 mg IVP once Route: IVP; Site: left antecubital; nj1 12:25 Follow up: Response: No adverse reaction nj1 11:59 Drug: NS 0.9% IV 1000 ml IV at 1 bolus Per protocol; 1000 mL bolus Route: IV; Rate: 1 nj1 bolus; Site: left antecubital; 13:30 Follow up: IV Status: Completed infusion; IV Intake: 1000ml [facility] 11:59 Drug: HYDROmorphone IVP 1 mg IVP once Route: IVP; Site: left antecubital; nj1 12:30 Follow up: Pain 8/10 Adult; Response: No adverse reaction; Pain is decreased nj1 13:10 Drug: Potassium PO Effervescent Tablet 25 mEq PO once; dissolve in 4 ounces of water or nj1 juice Route: PO; 13:30 Follow up: Response: No adverse reaction nj1 Disposition Summary: 05/24/23 12:40 Discharge Ordered Notes: Location: Home lizzeth Problem: new lizzeth Symptoms: have improved lizzeth Condition: Stable lizzeth Diagnosis - Acute gastritis 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 lizzeth - Hypokalemia lizzeth - Migraine without aura, not intractable lizzeth Followup: lizzeth - With: Private Physician - When: 2 - 3 days - Reason: Recheck today's complaints, Continuance of care, Re-evaluation by your physician Followup: lizzeth - With: Celia Read MD - When: 2 - 3 days - Reason: Recheck today's complaints, Re-evaluation by your physician Followup: lizzeth - With: Clair De La Garza MD - When: 2 - 3 days - Reason: Recheck today's complaints, Re-evaluation by your physician Followup: lizzeth - With: Adrian Arango MD - When: 2 - 3 days - Reason: Recheck today's complaints, Re-evaluation by your physician Discharge Instructions: - Discharge Summary Sheet lizzeth - Potassium Content of Foods lizzeth - Gastritis, Adult lizzeth - Migraine Headache lizzeth - Gastritis, Adult, [id number] lizzeth - Migraine Headache, [id number] lizzeth - Hypokalemia [facility] Forms: - Medication Reconciliation Form [facility] - Thank You Letter [facility] - Antibiotic Education lizzeth - Prescription Opioid Use lizzeth - Patient Portal Instructions [facility] - Leadership Thank You Letter [facility] Prescriptions: - Protonix 40 mg Oral Tablet - take 1 tablet ORAL route once daily; 30 tablet; Refills: 0, Product Selection lizzeth Permitted - Zofran 4 mg Oral Tablet - take 1 tablet ORAL route every 12 hours As needed; 20 tablet; Refills: 0, [facility] Product Selection Permitted - Xarelto 20 mg Oral tablet - take 1 tablet ORAL route once daily; 30 tablet; Refills: 0, Product Selection lizzeth Permitted Signatures: Dispatcher [employer] Arthur Dominguez MD MD cha Baxter, Heather, RN RN Charlene Miller RN RN nj1 Corrections: (The following items were deleted from the chart) 11:44 10:48 Allergies: No Known Allergies; nj1
--- NOTE | 2023-05-24 12:41 | ER ---
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 Coronavirus screen: At this time, the client does not indicate any symptoms associated with coronavirus-19. Ebola Screen: No symptoms or risks identified at this time. Initial Sepsis Screen: Does the patient meet any 2 criteria? No. Patient's initial sepsis screen is negative. Does the patient have a suspected source of infection? No. Patient's initial sepsis screen is negative. Risk Assessment: Do you want to hurt yourself or someone else? Patient reports no desire to harm self or others. Onset of symptoms was May 24, 2023. 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 - Social history:: Smoking status: Patient denies any tobacco usage or history of. Screenin:00 [facility] ED Fall Risk Assessment (Adult) Score/Fall Risk Level 0 - 2 = Low Risk nj1 Oriented to surroundings, Maintained a safe environment, Hourly rounding (assess needs \\T\\ fall precautionary measures) done. Abuse screen: Denies threats or abuse. Denies injuries from another. Nutritional screening: No deficits noted. Tuberculosis screening: No symptoms or risk factors identified. Assessment: 11:10 General: Appears in no apparent distress. comfortable, Behavior is calm, cooperative, nj1 appropriate for age. 11:10 Pain: Complains of pain in head Pain currently is 10 out of 10 on a pain scale. Neuro: nj1 Level of Consciousness is awake, alert, obeys commands, Oriented to person, place, time, situation. Cardiovascular: Patient's skin is warm and dry. Cardiovascular: Respiratory: Airway is patent Respiratory effort is even, unlabored. GI: Reports vomiting, Patient currently denies nausea. EENT: Reports nasal discharge that is bloody. Derm: Skin is pale. 13:10 Reassessment: Patient appears in no apparent distress at this time. Patient and/or nj1 family updated on plan of care and expected duration. Pain level reassessed. Patient is alert, oriented x 3, equal unlabored respirations, skin warm/dry/pink. Vital Signs: 10:44 BP 134 / 79; Pulse 113; Resp 16; Temp 97.7; Pulse Ox 98% on R/A; hb 11:45 BP 124 / 93; Pulse 74; Resp 16; Pulse Ox 96% ; Pain 10/10; nj1 12:30 Pain 8/10; nj1 13:20 BP 122 / 82; Pulse 73; Resp 17; Pulse Ox 96% ; nj1 11:45 Pain Scale: Adult nj1 12:30 Pain Scale: Adult nj1 Corning Coma Score: 11:52 Eye Response: spontaneous(4). Motor Response: obeys commands(6). Verbal Response: lizzeth oriented(5). Total: 15. ED Course: 10:33 Patient arrived in ED. im 10:35 Arthur Holland MD is Attending Physician. lizzeth 10:48 Triage completed. hb 10:48 Arm band placed on. hb 10:50 Charlene Miller, RN is Primary Nurse. nj1 10:57 Lipase Sent. bc6 10:57 Basic Metabolic Panel Sent. bc6 10:57 CBC with Diff Sent. bc6 10:57 LFT's Sent. bc6 10:57 Magnesium Sent. bc6 10:57 NT PRO-BNP Sent. bc6 10:57 PT-INR Sent. bc6 10:57 Troponin HS Sent. bc6 10:58 Inserted saline lock: 20 gauge in left antecubital area, using aseptic technique. Blood bc6 collected. 11:06 Type And Screen Sent. bc6 11:10 Provided Education on: call light, fall precautions. nj1 11:10 Patient has correct armband on for positive identification. Bed in low position. Call nj light in reach. Side rails up X 1. Adult w/ patient. 11:48 XRAY Chest (1 view) In Process Unspecified. EDMS 12:08 CT Head Brain wo Cont In Process Unspecified. EDMS 12:13 CT Abd/Pelvis - IV Contrast Only In Process Unspecified. EDMS 12:40 Celia Read MD is Referral Physician. lizzeth 12:40 Clair De La Garza MD is Referral Physician. lizzeth 12:40 Adrian Arango MD is Referral Physician. lizzeth 13:30 No provider procedures requiring assistance completed. IV discontinued, intact, nj1 bleeding controlled. Administered Medications: 11:25 Drug: NS 0.9% IV 1000 ml IV at 125 ml/hr continuous Route: IV; Rate: 125 ml/hr; Site: nj left antecubital; 11:59 Follow up: IV Intake: 60ml nj1 11:25 Drug: Pantoprazole IVP 40 mg IVP once Route: IVP; Site: left antecubital; nj1 12:25 Follow up: Response: No adverse reaction nj1 11:59 Drug: NS 0.9% IV 1000 ml IV at 1 bolus Per protocol; 1000 mL bolus Route: IV; Rate: 1 nj1 bolus; Site: left antecubital; 13:30 Follow up: IV Status: Completed infusion; IV Intake: 1000ml nj1 11:59 Drug: HYDROmorphone IVP 1 mg IVP once Route: IVP; Site: left antecubital; nj1 12:30 Follow up: Pain 8/10 Adult; Response: No adverse reaction; Pain is decreased nj1 13:10 Drug: Potassium PO Effervescent Tablet 25 mEq PO once; dissolve in 4 ounces of water or nj1 juice Route: PO; 13:30 Follow up: Response: No adverse reaction nj1 Medication: 13:30 VIS not applicable for this client. nj1 Intake: 11:59 IV: 60ml; Total: 60ml. nj1 13:30 IV: 1000ml; Total: 1060ml. nj1 Outcome: 12:40 Discharge ordered by . lizzeth 13:30 Discharged to home ambulatory, with family, nj1 13:30 Condition: stable 13:30 Discharge instructions given to patient, Instructed on discharge instructions, follow up and referral plans. medication usage, Demonstrated understanding of instructions, follow-up care, medications, Prescriptions given X 3, 13:44 Patient left the ED. nj1 Signatures: Dispatcher [employer] EDArthur Ramos, MD MD lizzeth Ware, Alexia, RN RN Dali Marie 6 Charlene Miller RN RN nj1 Christine Crowell Corrections: (The following items were deleted from the chart) 11:44 10:48 Allergies: No Known Allergies; raquel
[2023-05-24] MEDS ORDERED: POTASSIUM 25 MEQ EFFERV TAB ONE (13:13)
[2023-05-24 14:26] VITALS: TEMP 97.7
[2023-05-24 14:31] VITALS: O2SAT 96
[2023-05-24 14:38] VITALS: BP 122/82
--- NOTE | 2023-05-24 15:41 | EKG ---
Test Date: 2023-05-24 Test Time: 11:32:08 [employer]: JOHANN MEASUREMENT RESULTS: Intervals: Rate: 77 PA: 146 QRSD: 82 QT: 402 QTc: 454 Haiku: P: 4 PA: 146 QRS: 0 T: -15 INTERPRETIVE STATEMENTS: Normal sinus rhythm Inferior infarct, age undetermined Abnormal ECG Compared to ECG 07/26/2017 09:07:16 Myocardial infarct finding now present Sinus tachycardia no longer present Left ventricular hypertrophy no longer present Electronically Signed On 05-24-23 15:40:14 CDT by Dion Brice
== END 2023-05-24 13:44 | disposition home or self-care (01) ==
LOC: ER 10:30
DX: K29.00 Acute gastritis without bleeding (principal); E87.6 Hypokalemia; G43.009 Migraine without aura, not intractable, without status migrainosus; D68.51 Activated protein C resistance; E03.9 Hypothyroidism, unspecified; Z79.01 Long term (current) use of anticoagulants; Z88.5 Allergy status to narcotic agent; Z86.73 Personal history of transient ischemic attack (TIA), and cerebral infarction without residual deficits
CPT/HCPCS: 96361; 93005; 85025; 80048; 36415; 86900; 83735; 86850; 85610; 86901; 80076; 84484; 83690; 83880; 70450; 74177; 71045; 96375; 96374; 99284; Q9967; C9113; J1170; J7030

== ENCOUNTER 2024-08-27 15:31 | Emergency (ER) | payer OTHER ==
--- OUTSIDE RECORDS SUMMARY | 2024-08-27 15:35 | XMS REPORT | Continuity of Care Document ---
Author Name Unknown Address [address] [place] [address] [facility] Address 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 Name Role Phone KATELYN MILES Attending Clinician Unavailab ISAIAH Shahid Attending Clinician Unavailable MEL HERNANDEZ Attending Clinician Unavailable DIANE JACKSON Attending Clinician Unavailab GINNA Keyes Attending Clinician Unavailable ARMANDO JARED Attending Clinician Unavailable ELIJAH CERDA Attending Clinician Unava ilLO Gallegos Attending Clinician Unavailable SYSTEM, PROVIDER NOT IN Attending Clinician Unav renan SMITH MD Attending Clinician Unavailab HANY Choe Attending Clinician Unavailable Latrice Carrillo Attending Clinician Unavailable Physician, No Primary or Family Admitting Clinic jordyn Unavailable Payers Payer Name Policy Type Policy Number Effective Date Expirati on Date Source [place] [employer] 94 9 [id number] 2024 00:00:00 Allergies, Adverse Reactions, Alerts Allergy Name Allergy Type Status Severity Reaction(s) Onset Date Inactive Date Treating Clinician Comments Source Morphine Propensi ty to adverse reaction s Active Other 03-11 00:00: 00 Doesn't work Yolanda Perez - Externa l Acetamin ophen-Co deine Propensi ty to adverse reaction s Active Rash 03-11 00:00: 00 Yolanda Perez - Externa l No Known Allergie s DA Active U 11-28 00:00: 00 [facility] No Known Drug Intolera nces DA Active U 01-10 00:00: 00 [facility] No Known Contrast Allergie s DA Active U 01-10 00:00: 00 [facility] No Known Drug Allergie s DA Active U 01-10 00:00: 00 [facility] No Known Food Allergie s DA Active U 01-10 00:00: 00 [facility] No Known Other Allergie s DA Active U 01-10 00:00: 00 [facility] [address] Drug allergy Active rash Common [facility] Social History Social Habit Start Date Stop Date Quantity Comments Source Gender identity Zaira Perez - External Sexual orientation K ge Perez - External History of tobacco use Cigarette Smoker Yolanda padilla - External Alcohol intake 2023-03-11 00:00:00 2023-03-11 00:00:00 Current drinker of alcohol (finding) Yolanda Perez - External Cigarette pack-years 2023-03-08 00:00:00 2023-03-08 00:00:00 Yolanda Perez - External Tobacco use and exposure 2023-03-08 00:00:00 2023-03-08 00:00:00 Smokeless tobacco non-user Yolanda Perez - External History of Social function 2023-03-08 00:00:00 2023-03-08 00:00:00 Yolanda Perez - External Alcohol Comment 2023-03-08 00:00:00 2023-03-08 00:00:00 socially Yolanda Perez - External Cigarettes smoked current (pack per day) - Reported 2023-03-08 00:00:00 2023-03-08 00:00:00 Yolanda Pierce Sex Ass[birth year] At 1970 00:00:00 1970 00:00:00 Yolanda Pierce Smoking Status Start Date Stop Date Source Ex-smoker 2023-03-08 00:00:00 2023-03-08 00:00:00 Mary mykealok Chris Pierce Medications Ordered Medication Name Filled Medication Name Start Date Stop Date Current Medication? Ordering Clinician Indication Dosage Frequency Signature (SIG) Comments Components Source Alprazolam 0.5 MG oral Tablet 03-11 13:47: 02 Yes .5mg [id number] 3D Take 1 tablet (0.5 mg total) by mouth 3 times daily as needed Yolanda marshall Furosemide (Lasix) 20 MG oral Tablet 03-11 13:47: 02 Yes 20mg Take 1 tablet (20 mg total) by mouth daily Yolanda marshall Bupropion HCL XL 150 MG OR TB24 03-11 13:47: 02 Yes 150mg Take 1 tablet (150 mg total) by mouth daily Yolanda marshall Clonidine (CATAPRES) 0.2 MG oral Tablet 12-25 00:00: 00 Yes Yolanda marshall Tramadol HCl (ULTRAM) 50 MG oral Tablet 12-10 00:00: 00 Yes TAKE ONE (1) OR TWO (2) TABLET(S) BY MOUTH THREE TIMES A DAY. Yolanda marshall Carisoprodo l 350 MG oral Tablet 12-06 00:00: 00 Yes Yolanda marshall Clonazepam 2 MG oral Tablet 12-06 00:00: 00 Yes Yolanda marshall Gabapentin 300 MG oral Capsule 12-06 00:00: 00 Yes Yolanda marshall Omeprazole 40 MG oral Delayed Release Capsule 12-06 00:00: 00 Yes Yolanda marshall Bupropion HCL XL 300 MG OR TB24 12-06 00:00: 00 03-11 00:00 :00 No Yolanda Seybold - Externa l Levothyroxi ne Sodium 300 MCG oral Tablet 11-26 00:00: 00 Yes Yolanda Chris - Externa joanna Quetiapine Fumarate 300 MG oral Tablet 11-26 00:00: 00 03-11 00:00 :00 No Yolanda Chris - Externa l Xarelto 20 MG oral Tablet 24 00:00: 00 Yes 20mg Take 1 tablet (20 mg total) by mouth daily WITH FOOD Yolanda Chris marshall clonazePAM 2 MG clonazePAM 2 MG 02-09 00:00: 00 No 1{table t} QD clonazePAM 2 MG Topamax 50 MG Topamax 50 MG 02-09 00:00: 00 No 1{table t} QD Topamax 50 MG Xarelto Xarelto No Xarelto Vital Signs Vital Name Observation Time Observation Value Comments S ource Systolic blood pressure 2023-03-11 18:40:00 138 mm[Hg] Yolandaalan Magallono ld - External Diastolic blood pressure 2023-03-11 18:40:00 88 mm[Hg] Yolanda Magallono ld - External Heart rate 2023-03-11 18:40:00 99 /min Kel y joshvalerie - External Body temperature 2023-03-11 18:40:00 36.61 Erica Yolanda Perez - External Respiratory rate 2023-03-11 18:40:00 20 /min Yolanda Perez - External Body height 2023-03-11 18:40:00 165.1 cm Zaira ciao Seybold - External Body weight 2023-03-11 18:40:00 109.317 kg Zaira caio Goldsmithybold - External BMI 2023-03-11 18:40:00 40.10 kg/m2 Zaira caio Goldsmithybvalerie - External Oxygen saturation in Arterial blood by Pulse oximetry 2023-03-11 18:40:00 100 /min Yolandaalan Magallonwing ld - External height 2022-02-07 10:00:00 65 [in_i] Commo n [facility] weight 2022-02-07 10:00:00 215 [lb_av] Comm on [facility] bmi 2022-02-07 10:00:00 35.77 kg/m2 [facility] blood pressure systolic 2022-02-07 10:00:00 124 mm[Hg] [facility] blood pressure diastolic 2022-02-07 10:00:00 72 mm[facility]Hg] [facility] Encounters Start Date/Time End Date/Time Encounter Type Admission Type Attending [facility] Facility Care Department Encounter ID Source 2022-02-07 11:24:02 Outpatient KATELYN MILES [facility] [id number] Common [facility] 2024-08-14 16:00:00 2024-08-14 16:00:00 Outpatient ISAIAH GAINES [id number] [facility] 2023-07-04 16:30:00 2023-07-04 16:30:00 Outpatient MEL HERNANDEZ [id number] [facility] 2023-06-17 13:30:00 2023-06-17 13:30:00 Outpatient DIANE JACKSON [id number] [facility] 2023-06-04 13:00:00 2023-06-04 13:00:00 Outpatient GINNA MOTLEY [id number] [facility] 2023-05-23 12:45:00 2023-05-23 12:45:00 Outpatient JARED ROBERTS [id number] [facility] 2023-05-13 00:00:00 2023-05-13 00:00:00 Outpatient ELIJAH CERDA [id number] [facility] 2023-04-22 00:00:00 2023-04-22 00:00:00 Outpatient ELIJAH CERDA [id number] [facility] 2023-04-05 15:00:00 2023-04-05 15:00:00 Outpatient LO ESCOBAR [id number] [facility] 2023-04-05 00:00:00 2023-04-05 00:00:00 Outpatient SYSTEM, PROVIDER YOLANDA MOYER [id number] Yolanda Sheritavalerie 2023-03-27 00:00:00 2023-03-27 00:00:00 Outpatient MD YOLANDA KENDRICK [id number] [facility] 2023-03-27 00:00:00 2023-03-27 00:00:00 Outpatient MD YOLANDA KENDRICK [id number] Yolanda Perez 2023-03-11 13:30:00 2023-03-11 13:30:00 Outpatient ELIJAH CERDA [id number] Yolanda joshvalerie 2023-02-18 08:45:00 2023-02-18 08:45:00 Outpatient ELIJAH CERDA [id number] [facility] 2023-01-03 14:00:00 2023-01-03 14:00:00 Outpatient HANY BATES [id number] [facility] 2022-02-07 00:00:00 2022-02-07 00:00:00 OFFICE VISIT ESTAB PT LEVEL 4 STLMLC STLMLC [id number] [facility] 2021-11-28 12:31:00 2021-11-28 15:28:00 Emergency EM GerardoLatrice 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 [phone] [place]: St: REG Name: KARSON DARDEN [facility] : 1970 Age/S: 51/F [address] [facility] Unit #: [id number] Loc: [place], [place] Phys: Shira Gardiner FURNITURE REFINISHER [address] Acct: [id number] Dis Date: Status: REG ER PHONE #: [phone] Exam Date: 11/28/2021 1307 FAX #: [phone] Reason: fall EXAMS: CPT CODE: [id number] XR ELBOW 3+V RT [id number] EXAMINATION: - XR HUMERUS 2 + V [...] NP Technologist: WAI FORD Trnscrd Date/Time/By: 11/28/2021 (9860) : By: [email or web address] PAGE 1 Signed Report FAX: Shira Gardiner NP [phone] [place]: St: REG Name: KARSON DARDEN [facility] : 1970 Age/S: 51/F [address] [facility] Unit #: [id number] Loc: [place], [place] Phys: Shira Gardiner 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 [address] Acct: [id number] Dis Date: Status: REG ER PHONE #: [phone] Exam Date: 11/28/2021 1307 FAX #: [phone] Reason: fall EXAMS: CPT CODE: [id number] XR ELBOW 3+V RT 20915 (Continued) Orig Print D/T: S: 11/28/2021 (0173) PAGE 2 Signed Report - XR SHOULDER 2 + V RT 2021-11-28 13:10:00 [facility] : 1970 Sex: F FAX: Shira Gardiner NP [phone] [place]: St: REG Name: KARSON DARDEN [facility] : 1970 Age/S: 51/F [address] [facility] Unit #: [id number] Loc: [place], [place] Phys: Shira Gardiner 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 [address] Acct: [id number] Dis Date: Status: REG ER PHONE #: [phone] Exam Date: 11/28/2021 1307 FAX #: [phone] Reason: fall EXAMS: CPT CODE: [id number] XR SHOULDER 2 + V RT [id number] EXAMINATION: - XR HUMERUS 2 + V [...] 1 Signed Report FAX: Shira Gardiner NP [phone] [place]: St: REG Name: KARSON DARDEN [facility] : 1970 Age/S: 51/F [address] [facility] Unit #: [id number] Loc: [place], [place] Phys: Shira Gardiner 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 [address] Acct: [id number] Dis Date: Status: REG ER PHONE #: [phone] Exam Date: 11/28/2021 1307 FAX #: [phone] Reason: fall EXAMS: CPT CODE: [id number] XR SHOULDER 2 + V RT 56705 (Continued) Orig Print D/T: S: 11/28/2021 (6354) PAGE 2 Signed Report - XR HUMERUS 2 + V RT 2021-11-28 13:10:00 [facility] : 1970 Sex: F FAX: Shira Gardiner NP [phone] [place]: St: REG Name: KARSON DARDEN [facility] : 1970 Age/S: 51/F [address] [facility] [place] Unit #: [id number] Loc: [place], [place] Phys: [place] [address] Acct: [id number] Dis Date: Status: REG ER PHONE #: [phone] Exam Date: 11/28/2021 1307 FAX #: [phone] Reason: fall EXAMS: CPT CODE: [id number] XR HUMERUS 2 + V RT 93975 EXAMINATION: - XR HUMERUS 2 + V [...] CC: Shira Gardiner NP Technologist: WAI FORD [facility] Date/Time/By: 11/28/2021 (3170) : By: [email or web address] PAGE 1 Signed Report FAX: Shira Gardiner NP [phone] [place]: St: REG Name: KARSON DARDEN [facility] : 1970 Age/S: 51/F [address] [facility] Unit #: [id number] Loc: [place], [place]: [place] [address] Acct: [id number] Dis Date: Status: REG ER PHONE #: [phone] Exam Date: 11/28/2021 1307 FAX #: [phone] Reason: fall EXAMS: CPT CODE: [id number] XR HUMERUS 2 + V RT 15034 (Continued) Orig Print D/T: S: 11/28/2021 (6540) PAGE 2 Signed Report - XR WRIST 3 + V RT 2021-11-28 13:10:00 [facility] : 1970 Sex: F FAX: Shira Gardiner NP [phone] [place]: St: REG Name: KARSON DARDEN [facility] : 1970 Age/S: 51/F [address] [facility] [employer]way Unit #: [id number] Loc: [place], [place]: [place] [address] Acct: [id number] Dis Date: Status: REG ER PHONE #: [phone] Exam Date: 11/28/2021 1307 FAX #: [phone] Reason: fall EXAMS: CPT CODE: [id number] XR WRIST 3 + V RT 78315 EXAMINATION: - XR HUMERUS 2 + V [...] 1 Signed Report FAX: Shira Gardiner NP [phone] [place]: St: REG Name: KARSON DARDEN [facility] : 1970 Age/S: 51/F [address] [facility] Unit #: [id number] Loc: [place], [place] Phys: Shira Gardiner 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
[2024-08-27] MEDS ORDERED: IPRATROPIUM BROM 0.5MG/2.5ML ONE (16:00)
[2024-08-27] MEDS ORDERED: ALBUTEROL 2.5 MG/3 ML NEB SOL ONE (16:00)
[2024-08-27] MEDS ORDERED: NA CHLORIDE 0.9% 1,000 ML ONE ×2 (16:01→18:01)
[2024-08-27] MEDS ORDERED: ACETAMINOPHEN 500 MG TAB ONE (16:01)
--- NOTE | 2024-08-27 16:47 | RAD REPORT ---
Procedure: Chest Single View HISTORY: Cough COMPARISON: 2022 FINDINGS: The lungs appear clear of acute infiltrate. No significant pleural effusion noted. The heart is normal size. IMPRESSION: No acute abnormality is displayed.
[2024-08-27 16:56] LABS: SARS-CoV-2 Antigen CONTROL BLUE LINE VIS/BG OK; SARS-CoV-2 Antigen Rapid Res Negative (Negative)
[2024-08-27 17:31] LABS: Absolute Lymphocytes (CBC) 0.7 K/uL (0.7-4.9); Absolute Monocytes 0.5 K/uL (0.1-1.3); Absolute Neutrophil 7.1 K/uL (1.8-8.0); Basophils % 0.4 % (0-1.3); Eosinophils % 0.2 % (0-4.4); Hematocrit 45.3 % (36.0-45.0); Hemoglobin 15.5 g/dL (12.0-15.0); Lymphocytes % 8.6 % (15.3-44.8); MCH 29.9 pg (27.0-35.0); MCHC 34.2 g/dL (32.0-36.0); MCV 87.5 fL (80-100); Monocytes % 5.6 % (3.3-12.3); Neutrophils % 85.2 % (41.7-73.7); Nucleated Red Blood Cells % 0.1 % (0-0); Platelets 230 thou/uL (152-406); RBC Red Blood Cell Count 5.17 M/uL (3.86-4.86); Red Cell Distribution Width 13.1 % (12.1-15.2)
[2024-08-27 17:42] LABS: PT Prothrombin Time 17.2 SECONDS (9.4-12.5); PTT, Activated Partial Thromb 39.4 SECONDS (24.3-36.9); Protime INR 1.65
[2024-08-27 17:51] LABS: Albumin 3.8 g/dL (3.4-5.0); Albumin/Globulin Ratio 0.9 (1.1-1.8); Anion Gap 11.7 mEq/L (5.0-15.0); Bilirubin Total 0.5 mg/dL (0.2-1.0); Globulin 4.2 g/dL (2.3-3.5); Potassium 3.7 mEq/L (3.5-5.1)
[2024-08-27] MEDS ORDERED: IBUPROFEN 200 MG TAB PO ONE (17:59)
[2024-08-27 18:04] LABS: Specific Gravity 1.008 (1.005-1.030); Sqamous Epithelial <5 /HPF (None Seen); Transitional Epithelial <5 /HPF (None Seen); Urine Bacteria <20 /HPF (<20); Urine Bilirubin NEGATIVE (Negative); Urine Blood Negative (Negative); Urine Clarity Turbid (Clear); Urine Color Colorless (Yellow); Urine Culture Reflex Order NOT NEEDED; Urine Glucose NEGATIVE (Negative); Urine Ketones NEGATIVE (Negative); Urine Microscopic Reflex YN ORDER UMIC; Urine Mucus Slight /HPF (None Seen); Urine Nitrite NEGATIVE (Negative); Urine Protein NEGATIVE (Negative); Urine RBC <5 /HPF (None Seen); Urine Urobilinogen Normal (Normal); Urine WBC <5 /HPF (<5); Urine pH 6.5 (5.0-7.0)
--- NOTE | 2024-08-27 19:41 | EDPHYS ---
Physician Documentation [facility] Name: Yani Carter Age: 54 yrs Sex: Female : 1970 Arrival Date: 08/27/2024 Time: 15:31 Bed 14 Private MD: ED Physician Gordy Pritchard HPI: 08/27 17:04 This 54 yrs old Female presents to ER via Ambulatory with complaints of Headache, sb4 Fever, Flu Symptoms. 17:04 fever, body aches, cough, "blacking out", body tingling x 2 days. states she was with sb4 her granddaughter recently who tested positive for parainfluenza. states she has been taking theraflu without any improvement in symptoms. states she checked her oxygen at home and it was 74%. denies any shortness of breath or chest pain. Historical: - Allergies: 15:56 Morphine; cm10 15:56 Amoxicillin; cm10 - PMHx: 15:56 Cerebrovascular accident; FACTOR 5; Hypothyroidism; Migraines; cm10 - Immunization history:: Adult Immunizations up to date. - Infectious Disease History:: Denies. - Social history:: Smoking status: unknown. ROS: 17:04 Abdomen/GI: Negative for abdominal pain, nausea, vomiting, diarrhea, and constipation, sb4 17:04 Constitutional: Positive for body aches, fatigue, fever, malaise, 17:04 Respiratory: Positive for cough, 17:04 Neuro: Positive for 17:04 All other systems are negative, Exam: 17:06 Constitutional: This is a well developed, well nourished patient who is awake, alert, sb4 and in no acute distress. Head/Face: Normocephalic, atraumatic. Eyes: Extra-ocular motions intact. Periorbital areas with no swelling, redness, or edema. ENT: Mucous membranes moist. Respiratory: No increased work of breathing, no retractions or nasal flaring. Abdomen/GI: Soft, non-tender, no distension. 17:06 ENT: TM's: no acute changes, bulging, is not appreciated, erythema, is not appreciated, Posterior pharynx: is normal, airway is patent, no erythema, no exudate, 17:06 Cardiovascular: Rate: tachycardic, Rhythm: regular, 17:06 Skin: Appearance: Temperature: warm, Vital Signs: 15:54 BP 129 / 92; Pulse 102; Resp 15; Temp 103.2; Pulse Ox 97% ; Weight 73.94 kg; Height 5 cm10 ft. 5 in. ; Pain 5/10; 16:00 BP 126 / 87; Pulse 95; Resp 15; Pulse Ox 95% ; cm10 16:30 BP 141 / 75; Pulse 118; Resp 19; Pulse Ox 100% ; cm10 17:30 BP 114 / 79; Pulse 117; Resp 18; Temp 103.1; Pulse Ox 100% ; cm10 19:09 Temp 100.9(O); cm10 19:12 BP 119 / 93; Pulse 98; Resp 20; Pulse Ox 98% ; cm10 15:54 Body Mass Index 27.12 (73.94 kg, 165.1 cm) cm10 15:54 Pain Scale: Adult cm10 MDM: 15:36 Medical Screening Exam initiated sb4 19:40 Data reviewed: vital signs, nurses notes, lab test result(s), radiologic studies, and sb4 as a result, I will discharge patient. Counseling: I had a detailed discussion with the patient and/or guardian regarding the historical points, exam findings, and any diagnostic results supporting the discharge/admit diagnosis, lab results, radiology results, to return to the emergency department if symptoms worsen or persist or if there are any questions or concerns that arise at home. 08/27 15:53 Order name: Blood Culture Adult (2) sb4 08/27 15:53 Order name: CBC with Diff; Complete Time: 17:44 sb4 08/27 15:53 Order name: CMP; Complete Time: 17:52 sb4 08/27 15:53 Order name: Lactate w/ 2H reflex if indic.; Complete Time: 17:56 sb4 08/27 15:53 Order name: Protime (+inr); Complete Time: 17:44 sb4 08/27 15:53 Order name: Ptt, Activated; Complete Time: 17:44 sb4 08/27 15:53 Order name: Urinalysis w/ reflexes; Complete Time: 18:04 sb4 08/27 15:53 Order name: SARS RAPID; Complete Time: 16:57 sb4 08/27 15:53 Order name: Flu; Complete Time: 17:07 sb4 08/27 15:53 Order name: Strep sb4 08/27 16:01 Order name: RSV; Complete Time: 16:57 sb4 08/27 16:59 Order name: Throat Culture EDMS 08/27 15:53 Order name: Chest Single View XRAY; Complete Time: 16:47 sb4 08/27 15:53 Order name: EKG; Complete Time: 15:53 sb4 08/27 15:53 Order name: Accucheck; Complete Time: 19:41 sb4 08/27 15:53 Order name: Cardiac monitoring; Complete Time: 16:28 sb4 08/27 15:53 Order name: EKG - Nurse/Tech; Complete Time: 16:28 sb4 08/27 15:53 Order name: IV Saline Lock - Large Bore; Complete Time: 16:28 sb4 08/27 15:53 Order name: Labs collected and sent; Complete Time: 16:28 sb4 08/27 15:53 Order name: O2 Per Protocol; Complete Time: 16:28 sb4 08/27 15:53 Order name: O2 Sat Monitoring; Complete Time: 16:28 sb4 08/27 15:53 Order name: Vital Signs; Complete Time: 16:28 sb4 EC:16 Rate is 97 beats/min. Rhythm is regular, Normal Sinus Rhythm. IN interval is normal at sb4 142 msec. QRS interval is normal at 84 msec. QT interval is normal at 356 msec. No Q waves. T waves are Normal. No ST changes noted. Clinical impression: Normal ECG. Interpreted by me. Reviewed by me. Administered Medications: 16:10 Drug: Acetaminophen PO 1000 mg PO once Route: PO; cm10 17:10 Follow up: Response: No adverse reaction cm10 16:15 Drug: DuoNeb Nebulize (3:1) (2.5 mg - 0.5 mg) 3 ml Nebulizer once Route: Nebulizer; cm10 16:39 Follow up: Response: No adverse reaction; Wheezing diminished cm10 16:17 Drug: NS 0.9% IV 1000 ml IV at 1000 ml once; to be given as a bolus over 60 minutes cm10 Route: IV; Rate: 1000 ml; Site: right forearm; 17:08 Follow up: Response: No adverse reaction; IV Status: Completed infusion; IV Intake: cm10 1000ml 18:06 Drug: Ibuprofen PO 600 mg PO once Route: PO; cm10 19:09 Follow up: Temp 100.9 Oral; Response: No adverse reaction; Temperature is decreased cm10 18:06 Drug: NS 0.9% IV 1000 ml IV at 1 bolus Per protocol; to be given as a bolus over 60 cm10 minutes Route: IV; Rate: 1 bolus; Site: right forearm; 19:09 Follow up: Response: No adverse reaction; IV Status: Completed infusion; IV Intake: cm10 1000ml Disposition Summary: 08/27/24 19:40 Discharge Ordered Notes: Location: Home sb4 Problem: new sb4 Symptoms: have improved sb4 Condition: Stable sb4 Diagnosis - Viral infection, unspecified sb4 Followup: sb4 - With: Emergency Department - When: As needed - Reason: Trouble breathing, Worsening of condition Discharge Instructions: - Discharge Summary Sheet sb4 - Viral Illness, Adult sb4 Forms: - Patient Portal Instructions sb4 - Leadership Thank You Letter sb4 Addendum: 08/30/2024 07:48 Co-signature as Attending Physician, Gordy Pritchard MD I reviewed the patient's care r n provided by the Advanced Practice Provider and agree with the diagnosis and treatment plan. Signatures: Dispatcher [employer] EDGordy Medellin MD MD rn Brown, Sophia, PA-C PA-C sb4 Laverne De Los Santos RN RN cm10 Corrections: (The following items were deleted from the chart) 08/27 15:54 15:53 BLOOD CULTURE*+BA.LAB.BRZ ordered. EDMS EDMS 15:54 15:53 CBC+H.LAB.BRZ ordered. EDMS EDMS 15:54 15:53 COMPREHENSIVE METABOLIC PANEL+C.LAB.BRZ ordered. EDMS EDMS 15:54 15:53 LACTATE+C.LAB.BRZ ordered. EDMS EDMS 15:54 15:53 PROTIME (+INR)+COAG.LAB.BRZ ordered. EDMS EDMS 15:54 15:53 PTT, ACTIVATED+COAG.LAB.BRZ ordered. EDMS EDMS 15:54 15:53 Urinalysis+U.LAB.BRZ ordered. EDMS EDMS 15:54 15:53 SARS-COV-2 Antigen Rapid+I.LAB.BRZ ordered. EDMS EDMS 15:54 15:53 Influenza Screen (A \\T\\ B)+BA.LAB.BRZ ordered. EDMS EDMS 15:54 15:53 Group A Streptococcus Rapid Sc+BA.LAB.BRZ ordered. EDMS EDMS 16:02 16:02 Respiratory Syncytial Virus Ag+BA.LAB.BRZ ordered. EDMS EDMS
--- NOTE | 2024-08-27 19:41 | ER ---
Nurse's Notes [facility] Name: Yani Carter Age: 54 yrs Sex: Female : 1970 Arrival Date: 08/27/2024 Time: 15:31 Bed 14 Private MD: Diagnosis: Viral infection, unspecified Presentation: 08/27 15:54 Coronavirus screen: Client denies travel out of the [place] in the last 14 days. Ebola cm10 Screen: Patient denies travel to an Ebola-affected area in the 21 days before illness onset. Initial Sepsis Screen: Does the patient meet any 2 criteria? Temp <36.0*C (96.8*F)) or > 38.3*C (100.9*F). HR > 90 bpm. 15:54 Method Of Arrival: Ambulatory cm10 15:54 Chief complaint: Patient states: Fever, cough, body aches and generalized weakness cm10 onset Saturday. Initial Sepsis Screen: Does the patient have a suspected source of infection? No. Patient's initial sepsis screen is negative. Risk Assessment: Do you want to hurt yourself or someone else? Patient reports no desire to harm self or others. Onset of symptoms was August 25, 2024. 15:54 Acuity: SONALI 2 cm10 Triage Assessment: 15:54 Headache History: Denies prior headaches. General: Appears uncomfortable, ill, Behavior cm10 is anxious. Pain: Complains of pain in Generalized body aches Pain currently is 5 out of 10 on a pain scale. Pain began 2-3 days ago. Also complains of no other associated symptoms. Neuro: No deficits noted. Level of Consciousness is awake, alert, obeys commands, Oriented to person, place, time, situation, Appropriate for age. Respiratory: No deficits noted. Airway is patent Respiratory effort is even, unlabored, Respiratory pattern is regular, symmetrical, Breath sounds with wheezes bilaterally. Derm: No deficits noted. Skin is healthy with good turgor. Historical: - Allergies: 15:56 Morphine; cm10 15:56 Amoxicillin; cm10 - PMHx: 15:56 Cerebrovascular accident; FACTOR 5; Hypothyroidism; Migraines; cm10 - Immunization history:: Adult Immunizations up to date. - Infectious Disease History:: Denies. - Social history:: Smoking status: unknown. Screenin:00 [facility] ED Fall Risk Assessment (Adult) History of falling in the last 3 months, cm10 including since admission No falls in past 3 months (0 pts) Confusion or Disorientation No (0 pts) Intoxicated or Sedated No (0 pts) Impaired Gait No (0 pts) Mobility Assist Device Used No (0 pt) Altered Elimination No (0 pt) Score/Fall Risk Level 0 - 2 = Low Risk Oriented to surroundings, Maintained a safe environment, Hourly rounding (assess needs \T\ fall precautionary measures) done. Abuse screen: Denies threats or abuse. Denies injuries from another. Nutritional screening: No deficits noted. Tuberculosis screening: No symptoms or risk factors identified. Assessment: 18:11 Reassessment: No changes from previously documented assessment. Patient and/or family cm10 updated on plan of care and expected duration. Pain level reassessed. Patient is alert, oriented x 3, equal unlabored respirations, skin warm/dry/pink. 19:59 General: Behavior is calm, cooperative, appropriate for age. Pain: Denies pain. Neuro: rg5 Level of Consciousness is awake, alert, Oriented to person, place, time. Cardiovascular: Denies chest pain. Respiratory: Airway is patent Trachea midline Respiratory effort is even, unlabored, Breath sounds are clear. GI: Abdomen is round. : No signs and/or symptoms were reported regarding the genitourinary system. EENT: No deficits noted. Derm: Skin is intact, Skin is dry, Skin is normal. Musculoskeletal: Circulation, motion, and sensation intact. Range of motion: intact in all extremities. Vital Signs: 15:54 BP 129 / 92; Pulse 102; Resp 15; Temp 103.2; Pulse Ox 97% ; Weight 73.94 kg; Height 5 cm10 ft. 5 in. ; Pain 5/10; 16:00 BP 126 / 87; Pulse 95; Resp 15; Pulse Ox 95% ; cm10 16:30 BP 141 / 75; Pulse 118; Resp 19; Pulse Ox 100% ; cm10 17:30 BP 114 / 79; Pulse 117; Resp 18; Temp 103.1; Pulse Ox 100% ; cm10 19:09 Temp 100.9(O); cm10 19:12 BP 119 / 93; Pulse 98; Resp 20; Pulse Ox 98% ; cm10 15:54 Body Mass Index 27.12 (73.94 kg, 165.1 cm) cm10 15:54 Pain Scale: Adult cm10 ED Course: 15:33 Patient arrived in ED. al6 15:34 Brooklynn Medeiros PA-C is PHCP. sb4 15:34 Gordy Pritchard MD is Attending Physician. sb4 15:54 Laverne De Los Santos, CATHERINE is Primary Nurse. cm10 15:56 Triage completed. cm10 15:56 Arm band placed on right wrist. Patient placed in an exam room, on a stretcher. cm10 16:00 Patient has correct armband on for positive identification. Bed in low position. Call cm10 light in reach. Side rails up X2. Provided Education on: ER process and procedures. Client placed on continuous cardiac and pulse oximetry monitoring. NIBP monitoring applied. 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 16:15 EKG done, by ED staff, reviewed by Brooklynn Medeiros PA-C COVID swab sent to lab. Flu and/or cm10 RSV swab sent to lab. Strep swab sent to lab. 16:17 Inserted saline lock: 20 gauge in right forearm, using aseptic technique. Blood cm10 collected. Flushed with 10 mL NS. 16:17 Initial lab(s) drawn, by me, sent to lab. First set of blood cultures drawn by me. cm10 16:27 CBC with Diff Sent. cm10 16:27 CMP Sent. cm10 16:27 Lactate w/ 2H reflex if indic. Sent. cm10 16:28 Protime (+inr) Sent. cm10 16:28 Ptt, Activated Sent. cm10 16:41 Chest Single View XRAY In Process Unspecified. EDMS 17:35 Second set of blood cultures drawn by me. cm10 19:16 Report given to CATHERINE Ricardo. cm10 19:41 Davion Gonzalez, RN is Primary Nurse. rg5 19:59 No provider procedures requiring assistance completed. IV discontinued, bleeding rg5 controlled, No redness/swelling at site. Pressure dressing applied. Administered Medications: 16:10 Drug: Acetaminophen PO 1000 mg PO once Route: PO; cm10 17:10 Follow up: Response: No adverse reaction cm10 16:15 Drug: DuoNeb Nebulize (3:1) (2.5 mg - 0.5 mg) 3 ml Nebulizer once Route: Nebulizer; cm10 16:39 Follow up: Response: No adverse reaction; Wheezing diminished cm10 16:17 Drug: NS 0.9% IV 1000 ml IV at 1000 ml once; to be given as a bolus over 60 minutes cm10 Route: IV; Rate: 1000 ml; Site: right forearm; 17:08 Follow up: Response: No adverse reaction; IV Status: Completed infusion; IV Intake: cm10 1000ml 18:06 Drug: Ibuprofen PO 600 mg PO once Route: PO; cm10 19:09 Follow up: Temp 100.9 Oral; Response: No adverse reaction; Temperature is decreased cm10 18:06 Drug: NS 0.9% IV 1000 ml IV at 1 bolus Per protocol; to be given as a bolus over 60 cm10 minutes Route: IV; Rate: 1 bolus; Site: right forearm; 19:09 Follow up: Response: No adverse reaction; IV Status: Completed infusion; IV Intake: cm10 1000ml Medication: 18:11 VIS not applicable for this client. cm10 Intake: 17:08 IV: 1000ml; Total: 1000ml. cm10 19:09 IV: 1000ml; Total: 2000ml. cm10 Outcome: 19:40 Discharge ordered by . jono 19:59 Discharged to home ambulatory, zhane 19:59 Condition: stable 19:59 Discharge instructions given to patient, Instructed on discharge instructions, Demonstrated understanding of instructions, follow-up care, 20:02 Patient left the ED. rg5 Signatures: Dispatcher [employer] Brooklynn Rand PA-C PA-C sb4 Laverne De Los Santos RN RN cm10 Davion Gonzalez RN RN rg5 Jeannine Langley [facility]
[2024-08-28 03:18] VITALS: TEMP 100.9
[2024-08-28 03:19] VITALS: BP 119/93; O2SAT 98
== END 2024-08-27 20:02 | disposition home or self-care (01) ==
LOC: ER 15:31
DX: B34.9 Viral infection, unspecified (principal); Z11.52 Encounter for screening for COVID-19
CPT/HCPCS: 96361; 87040 ×2; 87070; 85025; 81001; 36415; 85610; 87081; 83605; 85730; 80053; 87807; 87804 ×2; 71045; 96360; 99285; 87811; J7613; J7644; J7030 ×2; 93005